=== PATIENT | female | born 1950 | race Caucasian/White ===

== ENCOUNTER 2024-05-04 21:27 | Emergency (ER) | payer BC, SELFPAY ==
[2024-05-04 21:38] VITALS: BP 189/96; PULSE 64; RESP 16; TEMP 37.1; O2SAT 98; BMI 19.5
--- NOTE | 2024-05-04 23:26 | ED.WOUNDLAC ---
HPI - Wound/Laceration General Chief Complaint: Wound/Laceration Stated Complaint: GLF, cut tip of ear off, needs stitches Time Seen by Provider: 05/04/24 22:40 Source: patient Mode of arrival: Family Vehicle History of Present Illness HPI narrative: Patient is a 73-year-old female who is here for evaluation of a cut to her right ear. She states that she was trying to move a piece of furniture when she lost her balance and fell hitting her right ear on the corner of another piece of furniture. There was no loss of consciousness but she did feel ?dazed? afterwards. She was not on anticoagulation. No other injuries from the event. She was seen by the ENTs on [place] who advised that she come to the emergency department for further evaluation. Related Data Home Medications Medication Instructions Recorded Confirmed ibuprofen 200 mg tablet (Advil) 200 mg PO PRN ##0 04/11/11 Previous Rx's Medication Instructions Recorded estradiol 1 mg tablet 1 mg PO QDAY #90 tabs 03/22/17 clindamycin HCl 300 mg capsule 300 mg PO Q8H 5 days #15 caps 05/05/24 Allergies Allergy/AdvReac Type Severity Reaction Status Date / Time Penicillins [PENICILLINS] AdvReac Unknown DOES NOT Unverified 11/07/17 12:19 WORK Review of Systems Review of Systems Narrative: See HPI ENT Ears, Nose, Mouth, and Throat: Reports system reviewed and no additional complaints, except as documented Patient History Surgical History (Updated 11/27/17 @ 05:57 by Conversion Provider) Status post colonoscopy History of breast augmentation History of tonsillectomy S/P total abdominal hysterectomy and bilateral salpingo-oophorectomy Exam Initial Vital Signs Initial Vital Signs: Vital Signs Temperature 98.7 F 05/04/24 21:38 Pulse Rate 64 05/04/24 21:38 Respiratory Rate 16 05/04/24 21:38 Blood Pressure 189/96 H 05/04/24 21:38 Pulse Oximetry 98 05/04/24 21:38 Oxygen Delivery Method Room Air 05/04/24 21:38 [facility] Head: normal to inspection Ears: other (Cut to right external ear) Skin Other: She has a 4 cm total laceration to the right ear. No active bleeding. Procedures Laceration Repair Laceration 1: Site: other (Ear) Side (If applicable): right Size (cm): 4 Description: linear Depth: simple, single layer Local Anesthetic: lidocaine 1% Amount of anesthesia used (mL): 4 Pre-repair: wound explored and deep structures intact Skin layer closed with: nylon Skin layer suture size: 5-0 Number of sutures: 8 Technique: simple, interrupted Course Orders Ordered: Discontinued Medications Bacitracin (Bacitracin Oint 0.9 Gm Pckt) 1 applic TOP NOW ONE Stop: 05/05/24 00:17 Last Admin: 05/05/24 00:25 Dose: 1 applic Documented By: MICHELLE Clindamycin HCl (Clindamycin 150 Mg Capsule) 300 mg PO NOW ONE Stop: 05/05/24 00:21 Last Admin: 05/05/24 00:25 Dose: 300 mg Documented By: MICHELLE Vital Signs Vital signs: Vital Signs - 8 hr 05/04/24 21:38 05/05/24 00:42 Temperature 98.7 F 98.3 F Pulse Rate 64 74 Respiratory Rate 16 16 Blood Pressure 189/96 H 148/76 H Pulse Oximetry 98 97 Oxygen Delivery Method Room Air Room Air MDM - Wound/Laceration MDM Narrative Medical decision making narrative: Had a fairly complex laceration to the right ear but did not involve the cartilage. It was closed as described above. Because it involves the ear will place her on antibiotics for prophylaxis. She was given care instructions. She was informed that the stitches do need to be removed in 7-10 days. Advised that she follow-up with the ENT. She reports no other injuries from the event. Discharge Plan Departure Patient Disposition: Home Clinical Impression: Laceration of ear Instructions: DI for Laceration Repair Activity Restrictions/Additional Instructions: The stitches do need to be removed in 7-10 days. I do recommend that you follow-up with ENT. You can contact them at the number provided below. Take the antibiotics as directed. Topical antibiotic over the laceration. Return to the emergency department for new symptoms. Prescriptions: New clindamycin HCl 300 mg capsule 300 mg PO Q8H 5 Days Qty: 15 0RF No Action ibuprofen [Advil] 200 MG tablet 200 mg PO PRN Qty: 0 estradiol 1 MG tablet 1 mg PO QDAY Qty: 90 0RF Referrals: Ousmane Low MD [Physician] - Stand Alone Forms: Patient Portal/API
[2024-05-05] MEDS: BACITRACIN OINT 0.9 GM PCKT 1 APPLIC TOP (00:25)
[2024-05-05] MEDS: CLINDAMYCIN 150 MG CAPSULE 300 MG PO (00:25)
[2024-05-05 00:42] VITALS: BP 148/76; PULSE 74; RESP 16; TEMP 36.8; O2SAT 97
== END 2024-05-05 00:43 | disposition home or self-care (01) ==
PROVIDERS: Emergency Provider Emergency Medicine
DX: S01.311A Laceration without foreign body of right ear, initial encounter (principal); W18.09XA Striking against other object with subsequent fall, initial encounter
CPT/HCPCS: 12013; 99283